=== PATIENT | female | born 1965 | race Two or more races ===

== ENCOUNTER 2023-12-26 09:14 | Day surgery (SDC) | payer BC, OTHER ==
[2023-12-23 16:38] VITALS: BMI 35.6
[2023-12-26 10:25] VITALS: RESP 18; TEMP 97.3
[2023-12-26 10:54] VITALS: BP 110/62; PULSE 82
== END 2023-12-26 10:51 | disposition home or self-care (01) ==
LOC: FASU-ENDO 09:14
PROVIDERS: ATTEND Internal Medicine Gastroenterology
PROC: 0DJD8ZZ Inspection of Lower Intestinal Tract, Via Natural or Artificial Opening Endoscopic (ICD-10-PCS; principal; 2023-12-26 10:05)
DX: Z12.11 Encounter for screening for malignant neoplasm of colon (principal); K64.2 Third degree hemorrhoids; K64.1 Second degree hemorrhoids; K64.4 Residual hemorrhoidal skin tags